=== PATIENT | female | born 1980 | race African-American/Black ===

== ENCOUNTER 2024-07-07 13:05 | Emergency (ER) | payer OTHER ==
[~2024-07-07] VITALS: Ht 157.5 cm; Wt 76.3 kg
[2024-07-07 14:47] LABS: Basophils # (auto) 0.1 10 ^3/uL (0-0.2); Basophils % (auto) 0.8 % (0.0-2.0); Eosinophils # (auto) 0.1 10 ^3/uL (0-0.8); Eosinophils % (auto) 1.1 % (0.0-7.0); Hematocrit 41.4 % (36.0-46.0); Hemoglobin 13.7 g/dL (12.2-16.2); Lymphocytes # (auto) 2.5 10 ^3/uL (0.4-5.4); Lymphocytes % (auto) 34.5 % (10.0-50.0); Mean Corpuscular Hemoglobin 27.5 pg (28.0-32.0); Mean Corpuscular Hgb Conc. 33.1 g/dL (32.0-36.0); Mean Corpuscular Volume 83.2 fL (80.0-100.0); Monocytes # (auto) 0.6 10 ^3/uL (0-1.3); Monocytes % (auto) 7.8 % (0.0-12.0); Neutrophils % (auto) 55.8 % (37.0-80.0); Nucleated Red Blood Cells % 0.1 %; Platelet Count (auto) 245 10^3/uL (140-450); Red Blood Cells 4.98 10^6/uL (4.0-5.20); Red Cell Distribution Width 13.3 % (11.8-14.3); White Blood Cell 7.2 10^3/uL (4.4-10.8)
[2024-07-07 15:03] LABS: Alanine Aminotransferase 19 U/L (7-40); Albumin 4.7 g/dL (3.2-4.8); Alkaline Phosphatase 105 U/L (46-116); Anion Gap 5 (5-15); Aspartate Aminotransferase 17 U/L (13-40); BUN/Creatinine Ratio 9.9 (10.0-20.0); Bilirubin, Total 0.7 mg/dL (0.2-1.0); Blood Urea Nitrogen 9 mg/dL (9-23); Calcium 9.5 mg/dL (8.7-10.4); Carbon Dioxide 28 mmol/L (20-30); Chloride 106 mmol/L (98-107); Glucose 101 mg/dL (74-106); Lipase 32 U/L (12-53); Potassium 3.6 mmol/L (3.5-5.1); Sodium 139 mmol/L (136-145); Total Protein 7.7 g/dL (5.7-8.2)
[2024-07-07 16:07] VITALS: BP 148/98; PULSE 68; RESP 17; TEMP 98.7; O2SAT 100
== END 2024-07-07 16:10 | disposition home or self-care (01) ==
LOC: ER 13:05
DX: R07.89 Other chest pain (principal); I10 Essential (primary) hypertension; R10.2 Pelvic and perineal pain; E78.00 Pure hypercholesterolemia, unspecified; I48.92 Unspecified atrial flutter; I48.91 Unspecified atrial fibrillation
CPT/HCPCS: 36415; 71045; 80053; 83690; 84484; 84702; 85025; 93005

== ENCOUNTER 2025-10-04 13:54 | Emergency (ER) | payer MEDICAID, OTHER ==
[~2025-10-04] VITALS: Ht 165.1 cm; Wt 82.0 kg
--- NOTE | 2025-10-04 14:07 | ECG ---
[facility] Test Date: 2025-10-04 Test Time: 14:01:07 Pat Name: YOSVANY FLORES Department: ED Room: Gender: F [employer] Operator: MONY : 1980 Requested By: MIRZA YBARRA Order Number: [id number] Reading MD: John Villeda Measurements Intervals [place] Rate: 95 P: 79 MD: 148 QRS: 50 QRSD: 85 T: 12 QT: 352 QTc: 443 Interpretive Statements Sinus rhythm Anterior infarct, old Electronically Signed On 10-06-2025 20:04:08 PST by John Villeda Please click the below link to view image of tracing.
[2025-10-04 15:14] LABS: Hematocrit 43.2 % (36.0-46.0); Hemoglobin 14.3 g/dL (12.2-16.2); Mean Corpuscular Hemoglobin 27.0 pg (28.0-32.0); Mean Corpuscular Volume 82.0 fL (80.0-100.0); Nucleated Red Blood Cells % 0.0 %
[2025-10-04 15:18] LABS: Chloride 99 mmol/L (98-107); Sodium 142 mmol/L (136-145)
[2025-10-04 15:19] LABS: Anion Gap 13 (5-15); Carbon Dioxide 30 mmol/L (20-31)
[2025-10-04 15:20] LABS: Calcium 10.3 mg/dL (8.7-10.4)
[2025-10-04 15:25] LABS: BUN/Creatinine Ratio 15.1 (10.0-20.0); Blood Urea Nitrogen 13 mg/dL (9-23); Glucose 87 mg/dL (74-106)
[2025-10-04 15:29] LABS: Potassium 3.4 mmol/L (3.5-5.1)
--- NOTE | 2025-10-04 16:34 | ED.PDOC ---
HPI Comments 44-year-old female who presents in the ED with chief compliant of chest pain. Patient states that she has been having intermittent chest pain episodes for the past four days. Patient states the pain is located substernally aching in nature nonradiating with no associated exacerbating or alleviating factors. Patient otherwise states that she has been having headache for the past one week with noted blood pressure of 206/105 in the ED with noted history of hypertension. Patient is otherwise as he has been having vomiting for the past two days. Patient otherwise denies any other symptoms. States that she has not been taking her blood pressure medication over the last few months. 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 [employer] History Family History Family History: Reviewed,noncontributory to illness, No family hx of Cancer, No family hx of DM, No family hx of Heart heidy, No family hx of HTN, No family hx ofKidney heidy, No family hx of Liver heidy, No family hx of Lung heidy, No family hx of Stroke Social History Smoker: Non-Smoker Alcohol: Denies ETOH Use Drugs: Denies Drug Use Lives In: Home Constitutional: denies: chills, diaphoresis, fatigue, fever, malaise, sweats, weakness, others EENTM: denies: blurred vision, double vision, ear bleeding, ear discharge, ear drainage, ear pain, ear ringing, eye pain, eye redness, hearing loss, mouth pain, mouth swelling, nasal discharge, nose bleeding, nose congestion, nose pain, photophobia, tearing, throat pain, throat swelling, voice changes, others Respiratory: denies: cough, hemoptysis, orthopnea, SOB at rest, shortness of breath, SOB with excertion, stridor, wheezing, others Cardiovascular: reports: chest pain; denies: dizzy spells, diaphoresis, Dyspnea on exertion, edema, irregular heart beat, left arm pain, lightheadedness, palpitations, PND, syncope, others Gastrointestinal: reports: vomiting; denies: abdomen distended, abdominal pain, blood streaked bowels, constipated, diarrhea, dysphagia, difficulty swallowing, hematemesis, melena, nausea, poor appetite, poor fluid intake, rectal bleeding, rectal pain, others Genitourinary: denies: abnormal vagina bleeding, burning, dyspareunia, dysuria, flank pain, frequency, hematuria, incontinence, pain, , vagina discharge, urgency, others Neurological: denies: dizziness, fainting, headache, left sided numbness, left sided weakness, numbness, paresthesia, pre-existing deficit, right sided numbness, right sided weakness, seizure, speech problems, tingling, tremors, wea kness, others Musculoskeletal: denies: back pain, gout, joint pain, joint swelling, muscle pain, muscle stiffness, neck pain, others Integumetry: denies: bruises, change in color, change in hair/nails, dryness, l aceration, lesions, lumps, rash, wounds, others Allergic/Immunocompromised: denies: Difficulty Healing, Frequent Infections, Hives, Itching, others Hematologic/Lymphatic: denies: anemia, blood clots, easy bleeding, easy bruising, swollen glands, others Endocrine: denies: excessive hunger, excessive sweating, excessive thirst, excessive urination, flushing, intolerance to cold, intolerance to heat, unexplained weight gain, unexplained weight loss, others Psychiatric: denies: anxiety, bipolar disorder, depression, hopeless, panic disorder, schizophrenia, sleepless, suicidal, others All Other Systems: Reviewed and Negative Physical Exam General Appearance: No Apparent Distress, Normal HEENT: Normal ENT Inspection, Pharynx Normal, TMs Normal Neck: Full Range of Motion, Non-Tender, Normal, Normal Inspection Respiratory: Chest Non-Tender, Lungs Clear, No Accessory Muscle Use, No Respiratory Distress, Normal Breath Sounds Cardiovascular: No Edema, No JVD, No Murmur, No Gallop, Normal Peripheral Pulses, Regular Rate/Rhythm Breast Exam: Deferred Gastrointestinal: No Organomegaly, Non Tender, No Pulsatile Mass, Normal Bowel Sounds, Soft Genitalia: Deferred Pelvic: Deferred Rectal: Deferred Extremities: No calf tenderness, Normal capillary refill, Normal inspection, Normal range of motion, Non-tender, No pedal edema Musculoskeletal : Apperance: Normal Neurologic: Alert, 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 Was a procedure done? Was a procedure done?: No CP Differential Dx Differential Diagnosis: Angina, Anxiety / Panic Attack, Atrial Dysrhythmia, PVC's Differential Diagnosis: HTN Essential, HTN Accelerated, HTN Encephalopathy Differential Diagnosis: Chest Wall Pain, Costochondritis, Gastritis, Pericardi tis, Pneumonia Comment Hypertensive urgency, hypertensive emergency X-Ray, Labs, Meds, VS Vital Signs Date Time Temp Pulse Resp B/P (MAP) Pulse Ox O2 Delivery O2 Flow Rate FiO2 10/04/25 18:01 98.0 88 16 188/125 (146) 98 98.0 10/04/25 17:05 98 18 99 Room Air 10/04/25 17:05 97.8 98 18 197/123 (147) 99 97.8 10/04/25 15:00 101 10/04/25 14:01 95 10/04/25 14:00 97.8 99 17 206/125 99 97.8 Lab Test 10/04/25 17:46 10/04/25 15:32 10/04/25 14:22 Range/Units Troponin I High Sensitivity 5 5 6 </=34 ng/L White Blood Count 7.3 4.4-10.8 10^3/uL Red Blood Count 5.27 H 4.0-5.20 10^6/uL Hemoglobin 14.3 12.2-16.2 g/dL Hematocrit 43.2 36.0-46.0 % Mean Corpuscular Volume 82.0 80.0-100.0 fL Mean Corpuscular Hemoglobin 27.0 L 28.0-32.0 pg Mean Corpuscular Hemoglobin Concent 33.0 32.0-36.0 g/dL Red Cell Distribution Width 13.3 11.8-14.3 % Platelet Count 246 140-450 10^3/uL Mean Platelet Volume 10.2 6.9-10.8 fL Neutrophils (%) (Auto) 58.1 37.0-80.0 % Lymphocytes (%) (Auto) 34.2 10.0-50.0 % Monocytes (%) (Auto) 5.0 0.0-12.0 % Eosinophils (%) (Auto) 1.3 0.0-7.0 % Basophils (%) (Auto) 1.4 0.0-2.0 % Neutrophils # (Auto) 4.2 1.6-8.6 10 ^3/uL Lymphocytes # (Auto) 2.5 0.4-5.4 10 ^3/uL Monocytes # (Auto) 0.4 0-1.3 10 ^3/uL Eosinophils # (Auto) 0.1 0-0.8 10 ^3/uL Basophils # (Auto) 0.1 0-0.2 10 ^3/uL Nucleated Red Blood Cells 0.0 % Sodium Level 142 136-145 mmol/L Potassium Level 3.4 L 3.5-5.1 mmol/L Chloride Level 99 98-107 mmol/L Carbon Dioxide Level 30 20-31 mmol/L Anion Gap 13 5-15 Blood Urea Nitrogen 13 9-23 mg/dL Creatinine 0.86 0.550-1.02 mg/dL Glomerular Filtration Rate Calc 85 >90 mL/min BUN/Creatinine Ratio 15.1 10.0-20.0 Serum Glucose 87 74-106 mg/dL Calcium Level 10.3 8.7-10.4 mg/dL Current Medications Medications (Trade) Dose Ordered Sig/Yissel Route Start Time Stop Time Status Last Admin Potassium Chloride (Klor-Con Tablet) 10 meq ONCE ONCE PO 10/04/25 16:45 10/04/25 16:46 DC 10/04/25 17:04 Acetaminophen/ Hydrocodone Bitart ([place] 5/325MG Tab) 1 tab ONCE ONCE PO 10/04/25 16:45 10/04/25 16:47 DC 10/04/25 17:05 X-Ray, Labs, Meds, VS Comment Patient presents with a history of headache most likely related to benign etiology such as tension headache or migraine with symptomatic control achieved in the emergency department. On history no high risk features such as AM temporal component, persistent nausea/vomiting, sudden thunderclap in onset, c hanges in vision, jaw claudication, seizure. Patient to be discharged home with symptomatic management, avoidance of headache triggers and close follow up with primary care provider for referral to neurology as indicated. Counseled patient to maintain headache journal to assist with identification of triggers. Reviewed supportive care and return precautions including, but not limited to fever > 100.4, severe headache, vision changes, PO intolerance. Patient is in agreement with the plan and all questions answered. Considered SAH, meningitis/encephalitis, stroke, space-occupying lesion, GCA, acute angle closure glaucoma, vascular dissection, CVT, IIH, PRES, carbon monoxide poisoning, preeclampsia/eclampsia, but consider these to be less likely based on history/physical/evaluation as above. Regarding the patient's chest pain, her symptoms totally improved after informed her that her troponin and EKG were reassuring and explained to her what this meant. I had a long discussion with the patient about the importance of taking her blood pressure medication but she stated that she required a refill. I provided the patient with a prescription for amlodipine to her preferred pharmacy and instructed her to follow up with the primary care provider within 2-3 days for re-evaluation and for further refills of her medications. Return precautions discussed for any further chest pain, numbness, weakness, headaches, vision changes, or any other new or concerning symptoms. Doubt ACS. Doubt hypertensive emergency. Patient is overall very well-appearing, ambulating with a steady gait and in no distress. Time of 1ST Reevaluation: 17:00 Reevaluation 1ST: Improved Patient Education/Counseling: Diagnosis, Treatment Family Education/Counseling: No Family Present SEPSIS Sepsis Screen Date sepsis recognized/suspect: Oct 04, 2025 Time Sepsis recognized/suspect: 135 Recent Procedure: No On Antibiotic Therapy: No Respiratory Rate >20: No Heart Rate >90: Yes Temp<36 C (96.8 F) or >38.3 C: No SBP <90 or MAP <65 mmHG: No New Acute Mental Status Change: No Is the patient on CPAP, BIPAP,: No Physician Orders Electrocardigram (10/04/25 15:05) Electrocardigram (10/04/25 17:05) Vital Signs Date Time Temp Pulse Resp B/P (MAP) Pulse Ox O2 Delivery O2 Flow Rate FiO2 10/04/25 18:01 98.0 88 16 188/125 (146) 98 98.0 10/04/25 17:05 98 18 99 Room Air 10/04/25 17:05 97.8 98 18 197/123 (147) 99 97.8 10/04/25 15:00 101 10/04/25 14:01 95 10/04/25 14:00 97.8 99 17 206/125 99 97.8 Laboratory Tests Test 10/04/25 14:22 White Blood Count 7.3 10^3/uL (4.4-10.8) Medications Medications Dose Ordered Sig/Yissel Route Start Time Stop Time Status Last Admin Dose Admin Acetaminophen/ Hydrocodone Bitart 1 tab ONCE ONCE PO 10/04/25 16:45 10/04/25 16:47 DC 10/04/25 17:05 Potassium Chloride 10 meq ONCE ONCE PO 10/04/25 16:45 10/04/25 16:46 DC 10/04/25 17:04 Departure 1 Departure Time of Disposition: 16:30 Impression: Primary Impression: Hypertension Additional Impression: Headache Disposition: 01 HOME / SELF CARE / HOMELESS Condition: Stable e-Prescriptions Amlodipine Besylate (NORVASC TABLET) 5 Mg Tb 1 TAB PO DAILY for 30 Days, #30 TAB 0 Refills Prov: MIRZA YBARRA MD 10/04/25 Critical Care Note Critical Care Time?: Yes (30 min-critical care time only) Stability Stability form required: No Heart Score Heart Score: Heart Score Response (Comments) Value History Slightly Suspicious 0 EKG Normal 0 Age 45-64 1 Risk Factors 1 or 2 risk factors 1 Troponin Normal limit 0 Total 2 I personally scribed for MIRZA YBARRA MD ([email or web address]) on 10/04/25 at 16:34. Electronically submitted by Stella Winslow ([email or web address]). MIRZA YBARRA MD Oct 04, 2025 16:34
[2025-10-04] MEDS ORDERED: AML5T PO (16:37)
[2025-10-04] MEDS: POTASSIUM CHL 10 Meq TABLET PO ONE (17:04)
[2025-10-04] MEDS: HYDROcodone-ACET 5/325MG TAB PO ONE (17:05)
[2025-10-04 18:01] VITALS: BP 188/125; RESP 16; TEMP 98; O2SAT 98
[2025-10-04 20:21] VITALS: PULSE 95
--- NOTE | 2025-10-05 07:07 | ECG ---
[facility] Test Date: 2025-10-04 Test Time: 15:00:06 Pat Name: YOSVANY FLORES Department: ER Room: Gender: F Biology Tutor: GISSELL : 1980 Requested By: MIRZA YBARRA Order Number: [id number] Reading MD: John Villeda Measurements Intervals [place] Rate: 101 P: 74 MT: 149 QRS: 39 QRSD: 94 T: -7 QT: 335 QTc: 435 Interpretive Statements Sinus tachycardia Anterior infarct, old Electronically Signed On 10-06-2025 20:05:00 PST by John Villeda Please click the below link to view image of tracing.
== END 2025-10-04 18:08 | disposition home or self-care (01) ==
LOC: ER 13:54
DX: R07.89 Other chest pain (principal); I10 Essential (primary) hypertension; I25.2 Old myocardial infarction; Z79.899 Other long term (current) drug therapy
CPT/HCPCS: 36415; 80048; 84484; 85025; 93005